=== PATIENT | female | born 1950 | race Caucasian/White ===

== ENCOUNTER 2018-01-27 15:34 | Emergency (ER) | payer MEDICARE, BC ==
[~2018-01-27] VITALS: Ht 160 cm; Wt 81.6 kg
[~2018-01-27 15:34] MED LIST: ALPR1TAB7 PO; DIPH1TAB PO; METO100T7 PO; NAPR-1164 PO; PRAM0.5T3 PO; [UNRECOGNIZED DRUG - REMARK]
[2018-01-27] MEDS ORDERED: SOLI10TA2 PO (16:04)
[2018-01-27] MEDS ORDERED: BECL8.7A6 IH (16:04)
--- NOTE | 2018-01-27 17:56 | NUR ---
" Can I have some blood tests?" per patient's verbalization, notified.
[2018-01-27 18:27] LABS: BASOPHILS # (AUTO) 0.1 K/uL (0.0-8.0); BASOPHILS % (AUTO) 0.6 % (0.0-2.0); EOSINOPHILS # (AUTO) 0.1 K/uL (0.0-0.7); EOSINOPHILS % (AUTO) 0.9 % (0.0-7.0); HEMATOCRIT 43.6 % (31.2-41.9); HEMOGLOBIN 14.3 g/dL (10.9-14.3); LYMPHOCYTES # (AUTO) 1.8 K/uL (20.0-40.0); LYMPHOCYTES % (AUTO) 18.8 % (20.5-51.5); MEAN CORPUSCULAR HEMOGLOBIN 28.9 uug (24.7-32.8); MEAN CORPUSCULAR HGB CONC 33 g/dL (32.3-35.6); MEAN CORPUSCULAR VOLUME 88.3 fL (75.5-95.3); MONOCYTES # (AUTO) 0.6 K/uL (2.0-10.0); MONOCYTES % (AUTO) 6.7 % (0.0-11.0); NEUTROPHILS # (AUTO) 6.9 K/uL (1.8-8.9); PLATELET COUNT (AUTO) 282 K/uL (179-408); RED BLOOD CELL COUNT(AUTO) 4.94 MIL/uL (3.63-4.92); WHITE BLOOD COUNT (AUTO) 9.4 K/uL (3.8-11.8)
--- NOTE | 2018-01-27 18:41 | NUR ---
Patient is resting comfortably on gurney while using her personal electronic device, NAD
[2018-01-27 18:47] LABS: BILIRUBIN,DIRECT 0.1 mg/dL (0.0-0.2); BILIRUBIN,TOTAL 0.5 mg/dL (0.2-1.0); CREATININE 1.3 mg/dL (0.6-1.3); POTASSIUM 4.5 mmol/L (3.5-5.1); TOTAL PROTEIN, SERUM 7.7 g/dL (6.4-8.2)
--- NOTE | 2018-01-27 18:52 | NUR ---
Blanquita vela in ED - 01/27/18 at [address] Whitman is at bedside evaluating the patient@this time.
--- NOTE | 2018-01-27 18:56 | NUR ---
BLANCAAR to RALPH Valentino, pending disposition
--- NOTE | 2018-01-27 19:06 | NUR ---
Patient was seen ambulating to the bathroom with slow steady gait.
[2018-01-27 19:37] VITALS: BP 133/66
== END 2018-01-27 19:38 | disposition home or self-care (01) ==
LOC: ER 15:37
DX: R51 Headache (principal); M54.2 Cervicalgia; J45.909 Unspecified asthma, uncomplicated; I10 Essential (primary) hypertension; E78.5 Hyperlipidemia, unspecified; G89.29 Other chronic pain; Z88.1 Allergy status to other antibiotic agents; Z88.8 Allergy status to other drugs, medicaments and biological substances; Z91.048 Other nonmedicinal substance allergy status; V43.92XA Unspecified car occupant injured in collision with other type car in traffic accident, initial encounter; Y93.89 Activity, other specified; Y92.89 Other specified places as the place of occurrence of the external cause; Y99.8 Other external cause status
CPT/HCPCS: 36415; 70030-TC; 70450; 71045; 72125; 85025; 85730; 93005; A4663

== ENCOUNTER 2018-11-19 18:34 | Inpatient (IN) | payer MEDICARE, BC ==
[~2018-11-19] VITALS: Ht 160 cm; Wt 133.9 kg
[~2018-11-19 18:34] MED LIST changes: +BECL8.7A6 IH; -NAPR-1164 PO; -PRAM0.5T3 PO; +SOLI10TA2 PO; -[UNRECOGNIZED DRUG - REMARK]
[2018-11-19] MEDS ORDERED: LORAZEPAM 2 MG/1 ML VIAL ONE (18:48)
[2018-11-19 19:14] LABS: BASOPHILS # (AUTO) 0.1 K/uL (0.0-8.0); BASOPHILS % (AUTO) 0.4 % (0.0-2.0); HEMATOCRIT 43.4 % (31.2-41.9); HEMOGLOBIN 13.5 g/dL (10.9-14.3); LYMPHOCYTES # (AUTO) 1.3 K/uL (20.0-40.0); LYMPHOCYTES % (AUTO) 8.3 % (20.5-51.5); MEAN CORPUSCULAR HEMOGLOBIN 27.5 uug (24.7-32.8); MEAN CORPUSCULAR HGB CONC 31 g/dL (32.3-35.6); MEAN CORPUSCULAR VOLUME 88.2 fL (75.5-95.3); MONOCYTES # (AUTO) 0.6 K/uL (2.0-10.0); MONOCYTES % (AUTO) 4.1 % (0.0-11.0); NEUTROPHILS # (AUTO) 13.5 K/uL (1.8-8.9); NEUTROPHILS % (AUTO) 87.2 % (38.5-71.5); PLATELET COUNT (AUTO) 328 K/uL (179-408); RED BLOOD CELL COUNT(AUTO) 4.92 MIL/uL (3.63-4.92); WHITE BLOOD COUNT (AUTO) 15.5 K/uL (3.8-11.8)
[2018-11-19] MEDS ORDERED: LORAZEPAM 2 MG/1 ML VIAL IV ONE (19:15)
[2018-11-19 19:26] LABS: CARBON DIOXIDE 18 mmol/L (21-32); CHLORIDE 101 mmol/L (98-107); CREATININE 1.7 mg/dL (0.6-1.3); GLUCOSE 171 mg/dL (74-106); UREA NITROGEN, BLOOD 24 mg/dL (7-18)
[2018-11-19 19:31] LABS: ALKALINE PHOSPHATASE 106 U/L (50-136); ASPARTATE AMINOTRANSFERASE 47 U/L (15-37); BILIRUBIN,DIRECT 0.2 mg/dL (0.0-0.2); BILIRUBIN,TOTAL 0.7 mg/dL (0.2-1.0); TOTAL PROTEIN, SERUM 8.1 g/dL (6.4-8.2)
[2018-11-19 19:36] LABS: ACETAMINOPHEN < 2.0 ug/mL (10-30)
[2018-11-19 19:39] LABS: THYROID STIMULATING HORMONE 2.899 mIU/mL (0.358-3.740)
[2018-11-19 19:41] LABS: ETHANOL < 3 MG/DL (0-0)
[2018-11-19 19:49] LABS: *BILIRUBIN,URIN 2+ (NEGATIVE); *BLOOD, URINE 2+ (NEGATIVE); *CLARITY,URINE SLIGHTLY CLOUDY (CLEAR); *COLOR,URINE YELLOW (YELLOW); *KETONES,URINE TRACE (NEGATIVE); *UROBILINOGEN,URINE 0.2 E.U./dl (NORMAL); LEUKOCYTE ESTERASE ,URINE NEGATIVE (NEGATIVE); NITRITE, URINE NEGATIVE (NEGATIVE); PH,URINE 5.5 (5.0-8.0); UGLUCOSE NEGATIVE (NEGATIVE)
[2018-11-19 20:01] LABS: BACTERIA,URINE FEW /HPF (NONE SEEN); SQUAMOUS EPITHELIAL CELL,UR FEW /HPF (NONE SEEN); URINE AMORPHOUS URATE FEW /HPF; WBC,URINE 0-3 /HPF (0-3)
[2018-11-19 20:12] LABS: *AMPHETAMINE, URINE NEGATIVE (NEGATIVE); *BARBITURATE, URINE NEGATIVE (NEGATIVE); *CANNABINOID, URINE NEGATIVE (NEGATIVE); *COCCAINE, URINE NEGATIVE (NEGATIVE); *OPIATE, URINE NEGATIVE (NEGATIVE); *PHENCYCLIDINE SCREEN,URINE NEGATIVE (NEGATIVE)
[2018-11-19] MEDS ORDERED: IV NORMAL SALINE 1000 ML BAG IV ONE ×2 (20:15→20:30)
[2018-11-19] MEDS ORDERED: LEVOFLOXACIN 500 MG/D5W 100ML PIGGYBACK IV ONE (20:15)
[2018-11-19] MEDS ORDERED: LEVOFLOXACIN 500 MG/D5W 100 ML ONE (20:18)
[2018-11-19] MEDS ORDERED: LEVETIRACETAM IV 1,000 MG in IV DEXTROSE 5% 100 ML IV ONE (20:45)
[2018-11-19 21:09] LABS: ALANINE AMINOTRANSFERASE 63 U/L (14-59)
[2018-11-19] MEDS ORDERED: LEVETIRACETAM 500 MG/5 ML VIAL IV ONE (21:10)
[2018-11-19 23:00] VITALS: BP 157/83
[2018-11-19] MEDS ORDERED: ZOLPIDEM 5 MG TABLET PO PRN (23:00)
[2018-11-19] MEDS ORDERED: ONDANSETRON 4 MG/2 ML VIAL IV PRN (23:00)
[2018-11-19] MEDS ORDERED: ACETAMINOPHEN 325 MG TABLET PO PRN (23:00)
[2018-11-19] MEDS ORDERED: ALBUTEROL SULFATE 2.5 MG/3 ML NEBU NEB PRN (23:15)
[2018-11-20] MEDS: IV 1/2NS 1000 ML 1,000 ML IV PRN ×2 (00:54→16:19)
[2018-11-20] MEDS: LORAZEPAM 2 MG/1 ML VIAL IV PRN ×2 (01:47→17:39)
[2018-11-20] MEDS: PANTOPRAZOLE SODIUM 40 MG TABLET.DR PO SCH (06:04)
[2018-11-20 06:16] VITALS: BP 123/63
[2018-11-20 06:24] LABS: BASOPHILS % (AUTO) 0.2 % (0.0-2.0); EOSINOPHILS % (AUTO) 0.2 % (0.0-7.0); HEMATOCRIT 36.1 % (31.2-41.9); HEMOGLOBIN 12.1 g/dL (10.9-14.3); LYMPHOCYTES # (AUTO) 1.7 K/uL (20.0-40.0); LYMPHOCYTES % (AUTO) 15.1 % (20.5-51.5); MEAN CORPUSCULAR HEMOGLOBIN 29.1 uug (24.7-32.8); MEAN CORPUSCULAR HGB CONC 34 g/dL (32.3-35.6); MEAN CORPUSCULAR VOLUME 86.9 fL (75.5-95.3); MONOCYTES # (AUTO) 0.8 K/uL (2.0-10.0); MONOCYTES % (AUTO) 6.8 % (0.0-11.0); NEUTROPHILS # (AUTO) 8.9 K/uL (1.8-8.9); NEUTROPHILS % (AUTO) 77.7 % (38.5-71.5); PLATELET COUNT (AUTO) 276 K/uL (179-408); RED BLOOD CELL COUNT(AUTO) 4.15 MIL/uL (3.63-4.92); WHITE BLOOD COUNT (AUTO) 11.5 K/uL (3.8-11.8)
[2018-11-20 06:38] LABS: BILIRUBIN,TOTAL 0.9 mg/dL (0.2-1.0); MAGNESIUM 2.2 mg/dL (1.8-2.4); PHOSPHOROUS 2.1 mg/dL (2.5-4.9); POTASSIUM 3.5 mmol/L (3.5-5.1); TOTAL PROTEIN, SERUM 6.6 g/dL (6.4-8.2)
[2018-11-20] MEDS: OXYBUTYNIN CHLORIDE 5 MG TABLET PO SCH ×3 (08:51→16:20)
[2018-11-20] MEDS: HYDROCODONE/APAP 5-325MG TABLET PO PRN (08:52)
[2018-11-20] MEDS: METOPROLOL SUCCINATE XL 50 MG TAB.SR.24H PO SCH (08:57)
[2018-11-20] MEDS: ALPRAZOLAM 0.25 MG TABLET PO PRN (10:10)
[2018-11-20 11:42] VITALS: BP 118/57
[2018-11-20 16:00] VITALS: BP 124/57
[2018-11-20] MEDS ORDERED: NEUTRA PHOS PACKET PO ONE (16:00)
[2018-11-20 19:44] VITALS: BP 110/56
[2018-11-20] MEDS: LEVETIRACETAM IV 500 MG in IV DEXTROSE 5% 100 ML IV SCH (21:02)
[2018-11-21] VITALS: BP 128/53
[2018-11-21 04:00] VITALS: BP 122/65
[2018-11-21] MEDS: PANTOPRAZOLE SODIUM 40 MG TABLET.DR PO SCH (06:08)
[2018-11-21] MEDS: IV 1/2NS 1000 ML 1,000 ML IV PRN ×2 (06:35→22:28)
[2018-11-21 06:42] LABS: BASOPHILS # (AUTO) 0.1 K/uL (0.0-8.0); BASOPHILS % (AUTO) 0.6 % (0.0-2.0); EOSINOPHILS # (AUTO) 0.1 K/uL (0.0-0.7); EOSINOPHILS % (AUTO) 0.8 % (0.0-7.0); HEMATOCRIT 37.3 % (31.2-41.9); HEMOGLOBIN 12.5 g/dL (10.9-14.3); LYMPHOCYTES # (AUTO) 1.7 K/uL (20.0-40.0); LYMPHOCYTES % (AUTO) 18.3 % (20.5-51.5); MEAN CORPUSCULAR HEMOGLOBIN 29.4 uug (24.7-32.8); MEAN CORPUSCULAR HGB CONC 33 g/dL (32.3-35.6); MEAN CORPUSCULAR VOLUME 88.1 fL (75.5-95.3); MONOCYTES # (AUTO) 0.7 K/uL (2.0-10.0); MONOCYTES % (AUTO) 8.1 % (0.0-11.0); NEUTROPHILS # (AUTO) 6.6 K/uL (1.8-8.9); NEUTROPHILS % (AUTO) 72.2 % (38.5-71.5); PLATELET COUNT (AUTO) 232 K/uL (179-408); RED BLOOD CELL COUNT(AUTO) 4.24 MIL/uL (3.63-4.92); WHITE BLOOD COUNT (AUTO) 9.2 K/uL (3.8-11.8)
[2018-11-21 06:56] LABS: MAGNESIUM 2.1 mg/dL (1.8-2.4); PHOSPHOROUS 2.7 mg/dL (2.5-4.9); POTASSIUM 3.9 mmol/L (3.5-5.1)
[2018-11-21] MEDS: LEVETIRACETAM IV 500 MG in IV DEXTROSE 5% 100 ML IV SCH ×2 (09:28→20:31)
[2018-11-21] MEDS: OXYBUTYNIN CHLORIDE 5 MG TABLET PO SCH ×3 (09:34→17:49)
[2018-11-21] MEDS: METOPROLOL SUCCINATE XL 50 MG TAB.SR.24H PO SCH (09:34)
[2018-11-21 11:11] VITALS: BP 128/47
[2018-11-21 15:02] VITALS: BP 144/48
[2018-11-21] MEDS: ALPRAZOLAM 0.25 MG TABLET PO PRN (15:04)
[2018-11-21] MEDS: HYDROCODONE/APAP 5-325MG TABLET PO PRN (17:51)
[2018-11-21] MEDS: NEOMY/BACITRAC/POLYMI OINT 28.35 GM TUBE TP SCH (18:13)
[2018-11-21] MEDS: LORAZEPAM 2 MG/1 ML VIAL IV PRN ×2 (19:29→22:05)
[2018-11-21 20:00] VITALS: BP 126/47
[2018-11-22] MEDS: ALPRAZOLAM 0.25 MG TABLET PO PRN ×2 (02:07→14:15)
[2018-11-22] MEDS: PANTOPRAZOLE SODIUM 40 MG TABLET.DR PO SCH (06:03)
[2018-11-22 06:43] LABS: BASOPHILS # (AUTO) 0.1 K/uL (0.0-8.0); BASOPHILS % (AUTO) 0.7 % (0.0-2.0); EOSINOPHILS # (AUTO) 0.1 K/uL (0.0-0.7); EOSINOPHILS % (AUTO) 1.4 % (0.0-7.0); HEMATOCRIT 38.3 % (31.2-41.9); HEMOGLOBIN 12.3 g/dL (10.9-14.3); LYMPHOCYTES # (AUTO) 1.7 K/uL (20.0-40.0); LYMPHOCYTES % (AUTO) 19.3 % (20.5-51.5); MEAN CORPUSCULAR HEMOGLOBIN 27.9 uug (24.7-32.8); MEAN CORPUSCULAR HGB CONC 32 g/dL (32.3-35.6); MEAN CORPUSCULAR VOLUME 86.9 fL (75.5-95.3); MONOCYTES # (AUTO) 0.7 K/uL (2.0-10.0); MONOCYTES % (AUTO) 7.5 % (0.0-11.0); NEUTROPHILS # (AUTO) 6.2 K/uL (1.8-8.9); NEUTROPHILS % (AUTO) 71.1 % (38.5-71.5); PLATELET COUNT (AUTO) 234 K/uL (179-408); RED BLOOD CELL COUNT(AUTO) 4.41 MIL/uL (3.63-4.92); WHITE BLOOD COUNT (AUTO) 8.8 K/uL (3.8-11.8)
[2018-11-22 06:48] LABS: CREATININE 1.1 mg/dL (0.6-1.3); PHOSPHOROUS 2.2 mg/dL (2.5-4.9); POTASSIUM 3.4 mmol/L (3.5-5.1)
[2018-11-22] MEDS: METOPROLOL SUCCINATE XL 50 MG TAB.SR.24H PO SCH (09:11)
[2018-11-22] MEDS: OXYBUTYNIN CHLORIDE 5 MG TABLET PO SCH ×2 (09:11→12:40)
[2018-11-22] MEDS: LEVETIRACETAM IV 500 MG in IV DEXTROSE 5% 100 ML IV SCH (09:11)
[2018-11-22] MEDS: NEOMY/BACITRAC/POLYMI OINT 28.35 GM TUBE TP SCH (09:12)
[2018-11-22] MEDS ORDERED: LEVE500T9 PO (10:00)
[2018-11-22] MEDS ORDERED: POTASSIUM CHLORIDE 20 MEQ POWDER PACKET PO ONE (10:15)
[2018-11-22] MEDS ORDERED: DIPHENOXYLATE HCL/ATROP SULF TABLET PO PRN (11:15)
[2018-11-22] MEDS ORDERED: NEUTRA PHOS PACKET PO ONE (15:45)
[2018-11-22 15:51] VITALS: BP 146/56
== END 2018-11-22 17:20 | disposition home health service (06) | DRG 100 ==
LOC: ER 18:37 → TELE3 22:36 → MEDSURG3 11-21 19:03
PROVIDERS: ADMIT Internal Medicine; ATTEND Internal Medicine
DX: R56.9 Unspecified convulsions (principal); N17.0 Acute kidney failure with tubular necrosis; G90.3 Multi-system degeneration of the autonomic nervous system; J98.11 Atelectasis; Z68.43 Body mass index [BMI] 50.0-59.9, adult; E44.0 Moderate protein-calorie malnutrition; E87.2 Acidosis; M51.06 Intervertebral disc disorders with myelopathy, lumbar region; D68.59 Other primary thrombophilia; M79.7 Fibromyalgia; K58.9 Irritable bowel syndrome, unspecified; E66.01 Morbid (severe) obesity due to excess calories; M50.30 Other cervical disc degeneration, unspecified cervical region; E78.5 Hyperlipidemia, unspecified; G43.909 Migraine, unspecified, not intractable, without status migrainosus; Z87.01 Personal history of pneumonia (recurrent); S41.101A Unspecified open wound of right upper arm, initial encounter; X58.XXXA Exposure to other specified factors, initial encounter; Y92.89 Other specified places as the place of occurrence of the external cause; M51.16 Intervertebral disc disorders with radiculopathy, lumbar region; E11.65 Type 2 diabetes mellitus with hyperglycemia; F41.9 Anxiety disorder, unspecified; E83.39 Other disorders of phosphorus metabolism; E73.9 Lactose intolerance, unspecified; K80.20 Calculus of gallbladder without cholecystitis without obstruction; J45.909 Unspecified asthma, uncomplicated; M48.02 Spinal stenosis, cervical region; N32.81 Overactive bladder; I10 Essential (primary) hypertension; G89.4 Chronic pain syndrome
CPT/HCPCS: 36415; 70030-TC; 70450; 71045; 72125; 80307; 83605; 83735; 84100; 84443; 85025; 85730; 87040; 87086; 93005; 93307; A4663; G0378; G0480; G0480-TC; J1953; J1956; J2060; J3490; J7030; J7060

== ENCOUNTER 2018-11-30 19:58 | Inpatient (IN) | payer MEDICARE, BC ==
[~2018-11-30] VITALS: Ht 167.6 cm; Wt 139.3 kg
[~2018-11-30 19:58] MED LIST changes: +LEVE500T9 PO
--- NOTE | 2018-11-30 21:30 | NUR ---
PT IS RECEIVED FROM [facility]. HERE FOR MEDICAL CLEARANCE AND ADMISSION TO MHU PT IS TRANSFERRED TO [facility]. +UNKEMPT HAIR AND +BODY ODOR. WEARING HER SUNGLASSES PT IS AOX2 PERSON AND PLACE. DISMISSES QUESTIONS AND STATES: "THAT IS NOT IMPORTANT RIGHT NOW" NOTICED DISORIENTATION, DENIES SI/HI CONCERNS AT THIS TIME
--- NOTE | 2018-11-30 22:00 | NUR ---
PT STATES: "I NEED TO TALK WITH CONNER HIGGINS AND ADARSH BEFORE YOU SAY ANYTHING. THEY ARE NEARBY AT THE [facility]. I NEED TO SPEAK WITH THEM" PT WAS REORIENTED AND REASSURED. PT IS COMPLIANT. PT DID NOT COME WITH RELATIVES NOR PEERS Addendum: 12/01/18 at 0104 by NEVA CALL FOR BED DONE PT WILL BE ADMITTED TO THE [facility] [address] REA CONFIRMED 5150 GD PT IS AOX2 PERSON AND PLACE WITH EPISODES OF CONFUSION AND DISORIENTATION PT IS ACALM AND COMPLIANT SIDERAILSX2 UP, BED AT LOWEST POSITION
--- NOTE | 2018-11-30 23:30 | NUR ---
HAND OFF AND SBAR GIVEN TO JAVI ROSAS ALL PT BELONGINGS SIGNED
[2018-11-30] MEDS ORDERED: MAG HYDROX/AL HYDROX/SIMETH 30 ML LIQUID UDC PO PRN (23:45)
[2018-11-30] MEDS ORDERED: ACETAMINOPHEN 325 MG TABLET PO PRN (23:45)
[2018-11-30] MEDS ORDERED: MAGNESIUM HYDROXIDE 30 ML LIQUID UDC PO PRN (23:45)
[2018-11-30] MEDS ORDERED: TEMAZEPAM 7.5 MG CAPSULE PO PRN (23:45)
--- NOTE | 2018-11-30 23:52 | NUR ---
TRANSFERRED VIA GURNEY TO MHU ACCOMPANIED BY RALPH QUINTERO X2, BED AT LOWEST POSITION
[2018-12-01] MEDS ORDERED: BLOOD SUGAR DIAGNOSTIC 1 EACH STRIP VI SCH (00:30)
--- NOTE | 2018-12-01 01:41 | NUR ---
PATIENT RECEIVED FROM ER VIA [employer] 0016. PATIENT STATED "CALL GISELA LEUNG." PATIENT ALERT/ORIENTED X 1-2 PATIENT CONFUSED, UNKEMPT, ANXIOUS, SUSPICIOUS, GUARDED, RESTLESS, AND UNCOOPERATIVE. PATIENT REFUSED TO ANSWER ANY QUESTIONS ON HISTORY. PATIENT HAS REDNESS TO ABDOMINAL FOLDS, PATIENT REFUSED PICTURES. BILATERAL BRUISING TO UPPER AND LOWER ARMS, REFUSING PICTURES. NON- PITTING EDEMA TO BILATERAL FEET. PATIENT GIVEN ADVISEMENT AND ADMISSION PACKET AT BEDSIDE. NO AGGRESSIVE OR COMBATIVE BEHAVIOR NOTED, WILL CONTINUE TO MONITOR AND REDIRECT NEEDED. PATIENT ORIENTED TO ROOM REQUIRES FREQUENT REDIRECTION. BED IN LOWEST POSITION, BED LOCKED, AND BED ALARM ON WHILE IN BED. PATIENT DENIES SI/HI WILL CONTINUE TO MONITOR. PATIENT DENIES PAIN.PATIENT IS UNABLE TO AMBULATE PHYSICAL THERAPY ORDERED. ACCUCHECK RENDERED UPON ADMISSION 117MG/DL
--- NOTE | 2018-12-01 06:46 | NUR ---
UPON SHOWER THIS MORNING NOTED TO RIGHT SHOULDER BLADE AN OPEN SORE PICTURE RENDERED AND WOUND CONSULT ORDERED. WOUND CONSULT ALSO TO EVALUATE REDNESS TO ABDOMINAL FOLDS.
[2018-12-01 07:30] VITALS: BP 206/101
[2018-12-01] MEDS: LORAZEPAM 1 MG TABLET PO PRN ×2 (08:09→20:08)
[2018-12-01] MEDS ORDERED: CLONIDINE HCL 0.2 MG TABLET PO ONE (08:30)
[2018-12-01 10:27] VITALS: BP 153/48
[2018-12-01] MEDS: risperiDONE-M 0.5 MG TAB.RAPDIS PO SCH ×2 (14:20→21:00)
[2018-12-01 15:00] VITALS: BP 117/41
[2018-12-01] MEDS ORDERED: hydrALAZINE HCL 25 MG TABLET PO PRN (18:15)
[2018-12-01] MEDS: LEVETIRACETAM 500 MG TABLET PO SCH (18:45)
[2018-12-01] MEDS: BENZTROPINE MESYLATE 0.5 MG TABLET PO SCH (20:08)
--- NOTE | 2018-12-01 20:10 | NUR ---
PATIENT VERY ANXIOUS. NEEDS TO BE REDIRECTED FREQUENTLY. PATIENT GIVEN ATIVAN 1MG PO PRN FOR ANXIETY. ALL NEEDS ATTENDED. WILL CONTINUE TO MONITOR.
[2018-12-01 20:12] VITALS: BP 139/60
--- NOTE | 2018-12-01 21:30 | NUR ---
PATIENT ASLEEP IN BED. NO RESP. DISTRESS NOTED. BED ALARM ON. ZYPREXA ORDERED FOR 2100 NOT GIVEN. ORDER IS FOR Q12 AND PATIENT RECEIVED FIRST DOSE EARLIER AROUND 1400. PATIENT WAS EDUCATED EARLIER ON ZYPREXA, SHE BECAME VERY UPSET STATING SHE CAN NOT TAKE ZYPREXA AND IF SHE KNEW EARLIER THAT IT WAS GIVEN SHE WOULD HAVE REFUSED. PATIENT WANTS TO SPEAK WITH PSYCHIATRIST IN AM. AVIONICS MECHANIC AT BEDSIDE. ALL NEEDS ATTENDED.
[2018-12-02] MEDS: LEVETIRACETAM 500 MG TABLET PO SCH ×2 (06:03→18:20)
[2018-12-02 07:30] VITALS: BP 159/65
[2018-12-02 10:02] LABS: THYROID STIMULATING HORMONE 2.54 mIU/mL (0.358-3.740)
[2018-12-02] MEDS: FLUTICASONE/VILANTEROL 1 EACH BLST.W.DEV INH SCH (10:31)
[2018-12-02] MEDS: METOPROLOL SUCCINATE XL 50 MG TAB.SR.24H PO SCH (10:32)
[2018-12-02] MEDS: risperiDONE-M 0.5 MG TAB.RAPDIS PO SCH ×2 (10:32→21:19)
[2018-12-02] MEDS: BENZTROPINE MESYLATE 0.5 MG TABLET PO SCH ×2 (10:32→21:20)
[2018-12-02 11:08] LABS: MAGNESIUM 1.8 mg/dL (1.8-2.4); PHOSPHOROUS 2.9 mg/dL (2.5-4.9)
[2018-12-02] MEDS: LORAZEPAM 1 MG TABLET PO PRN (11:13)
[2018-12-02 15:22] VITALS: BP 149/65
--- NOTE | 2018-12-02 19:30 | NUR ---
AWAKE, SITTING AT THE EDGE OF BED. VERY CONVERSANT,AND CALM. DENIES ANY APIN/DISCOMFORTS AT THIS TIMED. DENIES ANY HALLUCINATION AND PARANOIA. CONTINUE CARE PLANNED.
[2018-12-02 20:10] VITALS: BP 114/61
--- NOTE | 2018-12-02 21:31 | NUR ---
TOOK WOUND PICTURE ON RIGHT UPPER ARM DORSAL SIDE. SHOWER DONE PER REQUEST. TOLERATED WELL.
--- NOTE | 2018-12-02 22:00 | NUR ---
TOOK PICTURES ON PT RIGHT ABDOMINAL FOLD AND RIGHT GROIN AREA RASHES. CLOTRIMAZOLE CREAM ORDERED BUT UNAVAILABLE THIS TIME. CHARGE NURSE AWARE.
[2018-12-03] MEDS: LEVETIRACETAM 500 MG TABLET PO SCH ×2 (05:52→17:46)
--- NOTE | 2018-12-03 06:04 | NUR ---
SHIFT END REPORT: VS STABLE. SLEPT GOOD. NO COMPLAINT PRESENTED. REMAIN AFEBRILE. ALL NEEDS ATTENDED AND MET. NO SIGNIFICANT EVENT REPORTED. CONTINUE CURRENT PLAN OF CARE.
[2018-12-03 07:20] LABS: *BILIRUBIN,URIN NEGATIVE (NEGATIVE); *CLARITY,URINE SLIGHTLY CLOUDY (CLEAR); *COLOR,URINE YELLOW (YELLOW); *KETONES,URINE NEGATIVE (NEGATIVE); *UROBILINOGEN,URINE 0.2 E.U./dl (NORMAL); LEUKOCYTE ESTERASE ,URINE NEGATIVE (NEGATIVE); NITRITE, URINE NEGATIVE (NEGATIVE); PH,URINE 5.5 (5.0-8.0); UGLUCOSE NEGATIVE (NEGATIVE)
[2018-12-03 07:30] VITALS: BP 92/56
[2018-12-03 08:22] LABS: *BLOOD, URINE TRACE (NEGATIVE)
[2018-12-03 08:29] LABS: BACTERIA,URINE FEW /HPF (NONE SEEN); SQUAMOUS EPITHELIAL CELL,UR MODERATE /HPF (NONE SEEN)
[2018-12-03 08:30] LABS: MUCUS,URINE FEW /LPF (0-FEW)
[2018-12-03] MEDS: BENZTROPINE MESYLATE 0.5 MG TABLET PO SCH ×2 (08:44→20:13)
[2018-12-03] MEDS: risperiDONE-M 0.5 MG TAB.RAPDIS PO SCH ×2 (08:44→20:12)
[2018-12-03] MEDS: CLOTRIMAZOLE 1% CREAM 30 GM TUBE TOP SCH ×2 (08:56→20:13)
[2018-12-03] MEDS: METOPROLOL SUCCINATE XL 50 MG TAB.SR.24H PO SCH (08:57)
[2018-12-03] MEDS: FLUTICASONE/VILANTEROL 1 EACH BLST.W.DEV INH SCH (08:58)
[2018-12-03 15:02] VITALS: BP 152/64
--- NOTE | 2018-12-03 16:34 | NUR ---
Initial Discharge plan Patient currently lives by herself in her apartment [Home: [address], [place] [address]; [phone]]. Patient would like to return ther after discharge. SW will continue to work with patient and MD to ensure a safe and proper discharge wright.
[2018-12-03 20:00] VITALS: BP 126/43
[2018-12-03] MEDS ORDERED: DEXTROSE 50% 50 ML DISP.SYRIN IV PRN (20:30)
[2018-12-03] MEDS: BLOOD SUGAR DIAGNOSTIC 1 EACH STRIP VI SCH (21:00)
[2018-12-04] MEDS: LORAZEPAM 1 MG TABLET PO PRN (03:23)
[2018-12-04] MEDS: LEVETIRACETAM 500 MG TABLET PO SCH (05:56)
[2018-12-04] MEDS: BLOOD SUGAR DIAGNOSTIC 1 EACH STRIP VI SCH ×4 (06:33→20:29)
--- NOTE | 2018-12-04 06:35 | NUR ---
Received Pt in her room on the phone. Pt ended her call and proceeded to explain to this short story writer how the MD "is releasing me to med surg and getting me out of the psych hart." Pt found to be hoarding multiple sandwiches and bottles of water in her dresser drawer. Pt educated on the food and snack policy, also regarding proper and safe food storage. Pt became upset and attempted to staff split, stating to the other RN who entered the room after subsequent to the Pt interview, Pt stated, "I don't like her, I want you as my nurse." Pt is entitled, hyperverbal, and needy. Pt is tangential and is difficult to stay on topic. Poor insight into psychiatric condition, Pt denies any reason for being in MHU, stating, It was all a big mistake because of my seizure disorder." Compliant with psych medication only after education, prompting and encouragement provided. Pt constantly complains about staff to other staff, requests multiple snacks, and though she is continent, requested a diaper. DIPPER AND DRIER placed diaper on the Pt per her request. Pt complained after her diaper was put on, that the DIPPER AND DRIER should have used cream even though cream was placed on the Pt by this short story writer during HS med pass. When Pt was educated regarding the frequency and the timing of the cream application, Pt became argumentative and asked to speak to a well point pumping supervisor. human resources benefits coordinator notified of Pt request. Pt then requested pain medication for 6/10 (B) knee pain, and stated that the staff "is not taking care of me." This short story writer came back to her room with pain medication and Ativan for anxiety. Pt was sleeping with audible snoring upon RN returning to her room. Medication wasted with human resources benefits coordinator. A1C noted to be 6.5, MD ordered insulin sliding scale with accu check. Pt initially refused HS and AM accu check, is irritable and uncooperative. Pt let human resources benefits coordinator take her accu check, AM BS 92. Denies SI/HI.
[2018-12-04 07:11] LABS: BASOPHILS # (AUTO) 0.1 K/uL (0.0-8.0); EOSINOPHILS # (AUTO) 0.1 K/uL (0.0-0.7); EOSINOPHILS % (AUTO) 1.7 % (0.0-7.0); HEMOGLOBIN 12.1 g/dL (10.9-14.3); LYMPHOCYTES # (AUTO) 1.9 K/uL (20.0-40.0); LYMPHOCYTES % (AUTO) 26.9 % (20.5-51.5); MEAN CORPUSCULAR HEMOGLOBIN 28.5 uug (24.7-32.8); MEAN CORPUSCULAR HGB CONC 33 g/dL (32.3-35.6); MEAN CORPUSCULAR VOLUME 87.2 fL (75.5-95.3); MONOCYTES # (AUTO) 0.6 K/uL (2.0-10.0); NEUTROPHILS # (AUTO) 4.3 K/uL (1.8-8.9); NEUTROPHILS % (AUTO) 61.4 % (38.5-71.5); PLATELET COUNT (AUTO) 178 K/uL (179-408); RED BLOOD CELL COUNT(AUTO) 4.24 MIL/uL (3.63-4.92)
[2018-12-04 07:24] LABS: BILIRUBIN,TOTAL 0.7 mg/dL (0.2-1.0); CREATININE 0.9 mg/dL (0.6-1.3); MAGNESIUM 1.6 mg/dL (1.8-2.4); PHOSPHOROUS 2.9 mg/dL (2.5-4.9); POTASSIUM 3.6 mmol/L (3.5-5.1)
[2018-12-04 07:30] VITALS: BP 117/60
--- NOTE | 2018-12-04 07:30 | NUR ---
RECIEVED PT LAYING IN BED, GENERALLY OBESED WITH GENERALIZED BODY WEAKNESS SECONDARY TO HER WEIGHT. AWAKE, ALERT AND ORIENTEDX3. VERY CONVERSANT BUT PLEASANT. ENCOURAGED TO GO TO THE DINING AREA FOR BREAKFAST BUT SHE IS REFUSING. HAS AN ODOROUS BODY SMELL BUT PT REFUSES TO TAKE A SHOWER. HER SKIN HAS SCATTERED RASHES AND WOUND PRESENT ON HER RIGHT UPPER BACK. AWAITING FOR WOUND CARE NURSE EVALUATION AND TX.
[2018-12-04] MEDS: GLIMEPIRIDE 2 MG TABLET PO SCH (08:38)
[2018-12-04] MEDS: risperiDONE-M 0.5 MG TAB.RAPDIS PO SCH ×3 (08:40→20:28)
[2018-12-04] MEDS: METOPROLOL SUCCINATE XL 50 MG TAB.SR.24H PO SCH (08:40)
[2018-12-04] MEDS: FLUTICASONE/VILANTEROL 1 EACH BLST.W.DEV INH SCH (08:41)
[2018-12-04] MEDS: BENZTROPINE MESYLATE 0.5 MG TABLET PO SCH ×2 (09:27→20:27)
[2018-12-04] MEDS: CLOTRIMAZOLE 1% CREAM 30 GM TUBE TOP SCH ×2 (09:27→20:28)
[2018-12-04] MEDS ORDERED: MAGNESIUM OXIDE 400 MG TABLET PO ONE (10:00)
--- NOTE | 2018-12-04 10:14 | NUR ---
FIREARMS REPORT: Side Laster Staple completed and submitted a [employer] firearms report for 5250 grave disability certification. A copy of report has been placed in patient chart.
--- NOTE | 2018-12-04 10:15 | NUR ---
Discharge planning SW attempted to reach Chelsea Graf [friend; [phone]] for collateral information regarding the patient and left two voicemails but unsuccessful.
--- NOTE | 2018-12-04 11:30 | NUR ---
SEEN AND EXAMINED BY DR EVANS WITH NEW OR. PT MEDICATED WITH MAGNESIUN CHLORIDE 1 TABLET ORALLY ORDERED.
--- NOTE | 2018-12-04 13:30 | NUR ---
SEEN AND EXAMIND BY THE WOUND CARE NURSE AT THE BEDSIDE WITH A NEW RECOMMENDATIONS.
--- NOTE | 2018-12-04 13:48 | NUR ---
APS Report This news writer submitted an APS report for suspicion of self neglect at patient's home. Report (Intake ID [id number]) was submitted on 12/04/2018 at 1:45 PM.
--- NOTE | 2018-12-04 14:05 | NUR ---
WOUND CARE CONSULT: PT PRESENTS WITH RASHES TO ABDOMINAL/GROIN FOLDS AND WOUND TO RT POSTERIOR SHOULDER AREA, PRESENT ON ADMISSION. PT IS ABLE TO AMBULATE PER NURSING STAFF AND IS CONTINENT. RECOMMENDATIONS MADE FOR SKIN CARE AND WOUND CARE. DISCUSSED WITH NURSING STAFF. DR CRISTINA MANZANO NOTIFIED OF SURGICAL CONSULT REQUEST FOR SHOULDER WOUND. WILL SEE PRN. QUNIN IN AGREEMENT WITH PLAN OF CARE. Addendum: 12/04/18 at 1407 by ALFA DELA CRUZ RN Amended: Links added. Addendum: 12/04/18 at 1415 by ALFA DELA CRUZ RN ABOVE WOUND CARE CONSULT WAS DONE BY MURPHY OLIVER RN (WOUND CARE)
[2018-12-04] MEDS ORDERED: Z GUARD REMEDY PASTE 57 GM TUBE TOP PRN (14:15)
--- NOTE | 2018-12-04 14:17 | NUR ---
WOUND CARE CONSULT: PT PRESENTS WITH RASHES TO ABDOMINAL/GROIN FOLDS AND WOUND TO RT POSTERIOR SHOULDER AREA, PRESENT ON ADMISSION. PT IS ABLE TO AMBULATE PER NURSING STAFF AND IS CONTINENT. RECOMMENDATIONS MADE FOR SKIN CARE AND WOUND CARE. DISCUSSED WITH NURSING STAFF. DR CRISTINA MANZANO NOTIFIED OF SURGICAL CONSULT REQUEST FOR SHOULDER WOUND. WILL SEE PRRaheem QUINN IN AGREEMENT WITH PLAN OF CARE.
[2018-12-04 15:31] VITALS: BP 151/67
[2018-12-04] MEDS: DIVALPROEX ER 500 MG TAB.SR.24H PO SCH (16:37)
--- NOTE | 2018-12-04 17:00 | NUR ---
WOUND ON THE RIGHT UPPER BACK ARM IS CLEANSED WITH NS, APPLIED HYDROGEL ABD COVERED IT WITH MEPELEX PER [facility] NURSE RECOMMENDATION TX. PT IS COOPERATIVE. BS IS 137 BUT PT REFUSED TO HAVE INSULIN SHOT COVERAGE. NOTIFIED DR EVANS. NO ORDERS MADE.
[2018-12-04 19:54] VITALS: BP 142/49
[2018-12-04] MEDS: Z GUARD REMEDY PASTE 57 GM TUBE TOP SCH (20:28)
[2018-12-04] MEDS: INSULIN REGULAR, HUMAN 300 UNIT/3 ML VIAL SQ PRN (20:29)
--- NOTE | 2018-12-04 21:21 | NUR ---
Patient refused to take any Insulin or Cogentin. Patient stated " All these medications are making me feel sick and I am not a diabetic, never have been".
--- NOTE | 2018-12-05 05:17 | NUR ---
Patient up early this am. Shower given, ointments applied. Dressing changed to Right arm. Patient with multiple requests. Very needy. Patient back to bed, all needs met at this time.No acute distress.
[2018-12-05] MEDS: BLOOD SUGAR DIAGNOSTIC 1 EACH STRIP VI SCH ×4 (06:08→20:14)
[2018-12-05 07:30] VITALS: BP 165/70
[2018-12-05] MEDS: INSULIN REGULAR, HUMAN 300 UNIT/3 ML VIAL SQ PRN ×2 (07:55→17:06)
[2018-12-05] MEDS: risperiDONE-M 0.5 MG TAB.RAPDIS PO SCH ×3 (08:26→20:14)
[2018-12-05] MEDS: BENZTROPINE MESYLATE 0.5 MG TABLET PO SCH ×2 (08:26→20:14)
[2018-12-05] MEDS: METOPROLOL SUCCINATE XL 50 MG TAB.SR.24H PO SCH (08:27)
[2018-12-05] MEDS: GLIMEPIRIDE 2 MG TABLET PO SCH (08:27)
[2018-12-05] MEDS: CLOTRIMAZOLE 1% CREAM 30 GM TUBE TOP SCH ×2 (08:27→20:15)
[2018-12-05] MEDS: FLUTICASONE/VILANTEROL 1 EACH BLST.W.DEV INH SCH (08:27)
[2018-12-05] MEDS: Z GUARD REMEDY PASTE 57 GM TUBE TOP SCH ×2 (08:29→20:15)
[2018-12-05 15:08] VITALS: BP 160/76
[2018-12-05] MEDS: DIVALPROEX ER 500 MG TAB.SR.24H PO SCH (17:03)
[2018-12-05 20:21] VITALS: BP 150/70
--- NOTE | 2018-12-05 21:41 | NUR ---
Doctor in earlier and did a debridement on patients RT arm. Consent signed and patient tolerated procedure well. Patient has been out to the nurses station with multiple requests and complaints about roommate. Offered to move patient to another room, but patient refused. Continuing to accommodate patient within reason. No acute distress at this time.
--- NOTE | 2018-12-06 05:27 | NUR ---
Patient slept 3.0 hours. Multiple requests for food during the night. No acute distress. Patient in bed at this time, awake.
[2018-12-06] MEDS: BLOOD SUGAR DIAGNOSTIC 1 EACH STRIP VI SCH ×4 (06:11→20:56)
[2018-12-06 08:11] VITALS: BP 117/66
[2018-12-06] MEDS: FLUTICASONE/VILANTEROL 1 EACH BLST.W.DEV INH SCH (09:00)
[2018-12-06] MEDS ORDERED: THERAHONEY GEL 1.5 OZ TUBE TOP SCH (09:00)
[2018-12-06] MEDS ORDERED: ASCORBIC ACID 250 MG TABLET PO SCH (09:00)
[2018-12-06] MEDS: BENZTROPINE MESYLATE 0.5 MG TABLET PO SCH ×2 (09:22→20:42)
[2018-12-06] MEDS: risperiDONE-M 0.5 MG TAB.RAPDIS PO SCH ×2 (09:22→12:32)
[2018-12-06] MEDS: METOPROLOL SUCCINATE XL 50 MG TAB.SR.24H PO SCH (09:22)
[2018-12-06] MEDS: GLIMEPIRIDE 2 MG TABLET PO SCH (09:23)
[2018-12-06] MEDS: CLOTRIMAZOLE 1% CREAM 30 GM TUBE TOP SCH ×2 (09:24→20:42)
[2018-12-06] MEDS: Z GUARD REMEDY PASTE 57 GM TUBE TOP SCH ×2 (09:24→20:56)
[2018-12-06] MEDS ORDERED: ASCORBIC ACID 500 MG TABLET PO SCH (09:37)
[2018-12-06] MEDS ORDERED: SOLI5TAB2 PO (12:06)
[2018-12-06] MEDS ORDERED: SOLIFENACIN SUCCINATE 5 MG TABEC PO SCH (12:30)
[2018-12-06 15:55] VITALS: BP 135/62
[2018-12-06] MEDS ORDERED: OXYBUTYNIN CHLORIDE 5 MG TABLET PO SCH (17:00)
[2018-12-06] MEDS ORDERED: MAGNESIUM HYDROXIDE 30 ML LIQUID UDC PO PRN (17:00)
[2018-12-06] MEDS ORDERED: TEMAZEPAM 7.5 MG CAPSULE PO PRN (17:00)
[2018-12-06] MEDS ORDERED: MAG HYDROX/AL HYDROX/SIMETH 30 ML LIQUID UDC PO PRN (17:00)
[2018-12-06] MEDS ORDERED: DEXTROSE 50% 50 ML DISP.SYRIN IV PRN (17:15)
[2018-12-06] MEDS ORDERED: hydrALAZINE HCL 25 MG TABLET PO PRN (17:15)
[2018-12-06] MEDS: DIVALPROEX ER 500 MG TAB.SR.24H PO SCH (17:58)
[2018-12-06] MEDS: OXYBUTYNIN CHLORIDE 5 MG TABLET PO SCH (18:02)
[2018-12-06] MEDS ORDERED: risperiDONE-M 0.5 MG TAB.RAPDIS PO SCH (21:00)
[2018-12-06] MEDS ORDERED: OLANZAPINE 2.5 MG TABLET PO SCH ×3 (21:00)
[2018-12-06 21:38] VITALS: BP 138/60
[2018-12-07] MEDS: LORAZEPAM 1 MG TABLET PO PRN (03:10)
--- NOTE | 2018-12-07 03:28 | NUR ---
GPS: Pt.is needy and argumentative at this time. Constantly asking for food. Easily irritable when staff was trying to throw her thrash on her bedside table. Requested for Ativan 1mg PO for anxiety. Fall precautions observed. Will continue to anticipate needs and concerns.
[2018-12-07] MEDS: BLOOD SUGAR DIAGNOSTIC 1 EACH STRIP VI SCH ×4 (06:48→20:13)
[2018-12-07 07:23] LABS: BASOPHILS # (AUTO) 0.1 K/uL (0.0-8.0); BASOPHILS % (AUTO) 1.1 % (0.0-2.0); EOSINOPHILS # (AUTO) 0.1 K/uL (0.0-0.7); HEMOGLOBIN 11.8 g/dL (10.9-14.3); LYMPHOCYTES # (AUTO) 1.7 K/uL (20.0-40.0); LYMPHOCYTES % (AUTO) 23.3 % (20.5-51.5); MEAN CORPUSCULAR HEMOGLOBIN 28.5 uug (24.7-32.8); MEAN CORPUSCULAR HGB CONC 33 g/dL (32.3-35.6); MEAN CORPUSCULAR VOLUME 87.4 fL (75.5-95.3); MONOCYTES # (AUTO) 0.6 K/uL (2.0-10.0); NEUTROPHILS # (AUTO) 4.6 K/uL (1.8-8.9); NEUTROPHILS % (AUTO) 64.6 % (38.5-71.5); PLATELET COUNT (AUTO) 201 K/uL (179-408); RED BLOOD CELL COUNT(AUTO) 4.12 MIL/uL (3.63-4.92); WHITE BLOOD COUNT (AUTO) 7.1 K/uL (3.8-11.8)
[2018-12-07 07:30] VITALS: BP 137/49
[2018-12-07 07:36] LABS: BILIRUBIN,TOTAL 0.5 mg/dL (0.2-1.0); CREATININE 0.9 mg/dL (0.6-1.3); POTASSIUM 4.1 mmol/L (3.5-5.1); TOTAL PROTEIN, SERUM 5.9 g/dL (6.4-8.2)
[2018-12-07] MEDS: ASCORBIC ACID 500 MG TABLET PO SCH (08:31)
[2018-12-07] MEDS: BENZTROPINE MESYLATE 0.5 MG TABLET PO SCH ×2 (08:31→20:04)
[2018-12-07] MEDS: risperiDONE-M 0.5 MG TAB.RAPDIS PO SCH ×3 (08:31→20:05)
[2018-12-07] MEDS: GLIMEPIRIDE 2 MG TABLET PO SCH (08:32)
[2018-12-07] MEDS: OXYBUTYNIN CHLORIDE 5 MG TABLET PO SCH ×2 (08:33→17:13)
[2018-12-07] MEDS: FLUTICASONE/VILANTEROL 1 EACH BLST.W.DEV INH SCH (08:57)
[2018-12-07] MEDS: CLOTRIMAZOLE 1% CREAM 30 GM TUBE TOP SCH ×2 (08:59→20:24)
[2018-12-07] MEDS: THERAHONEY GEL 1.5 OZ TUBE TOP SCH (08:59)
[2018-12-07] MEDS: METOPROLOL SUCCINATE XL 50 MG TAB.SR.24H PO SCH (09:00)
[2018-12-07] MEDS ORDERED: risperiDONE-M 0.5 MG TAB.RAPDIS PO SCH ×2 (09:00)
[2018-12-07] MEDS: Z GUARD REMEDY PASTE 57 GM TUBE TOP SCH ×2 (09:00→20:24)
[2018-12-07] MEDS: INSULIN REGULAR, HUMAN 300 UNIT/3 ML VIAL SQ PRN ×2 (12:25→20:18)
--- NOTE | 2018-12-07 13:33 | NUR ---
Discharge Planning SW faxed patient's referral packet to [facility] [Address: [address], [place] [address]; ] and spoke to Amanda for patient's review.
[2018-12-07 15:22] VITALS: BP 152/56
[2018-12-07] MEDS: DIVALPROEX ER 500 MG TAB.SR.24H PO SCH (17:12)
[2018-12-07 19:42] VITALS: BP_SYST 134; BP_SYST 139; BP_DIAS 36; BP_DIAS 53
[2018-12-08] MEDS: LORAZEPAM 1 MG TABLET PO PRN (02:41)
[2018-12-08] MEDS: BLOOD SUGAR DIAGNOSTIC 1 EACH STRIP VI SCH ×4 (06:39→20:54)
[2018-12-08 07:40] VITALS: BP 137/48
[2018-12-08] MEDS: FLUTICASONE/VILANTEROL 1 EACH BLST.W.DEV INH SCH (09:00)
[2018-12-08] MEDS: GLIMEPIRIDE 2 MG TABLET PO SCH (09:03)
[2018-12-08] MEDS: OXYBUTYNIN CHLORIDE 5 MG TABLET PO SCH ×2 (09:03→16:45)
[2018-12-08] MEDS: METOPROLOL SUCCINATE XL 50 MG TAB.SR.24H PO SCH (09:03)
[2018-12-08] MEDS: ASCORBIC ACID 500 MG TABLET PO SCH (09:03)
[2018-12-08] MEDS: Z GUARD REMEDY PASTE 57 GM TUBE TOP SCH ×2 (09:04→20:54)
[2018-12-08] MEDS: DIVALPROEX 250 MG TABLET.DR PO SCH (09:04)
[2018-12-08] MEDS: CLOTRIMAZOLE 1% CREAM 30 GM TUBE TOP SCH ×2 (09:04→21:20)
[2018-12-08] MEDS: BENZTROPINE MESYLATE 0.5 MG TABLET PO SCH ×2 (09:04→20:52)
[2018-12-08] MEDS: risperiDONE-M 0.5 MG TAB.RAPDIS PO SCH ×3 (09:04→20:52)
[2018-12-08] MEDS: THERAHONEY GEL 1.5 OZ TUBE TOP SCH (09:06)
[2018-12-08 15:00] VITALS: BP 122/53
[2018-12-08] MEDS: DIVALPROEX ER 500 MG TAB.SR.24H PO SCH (16:45)
[2018-12-08] MEDS ORDERED: PNEUMOCOCCAL 23-VAL P-SAC VAC 0.5 ML VIAL IM ONE (18:30)
[2018-12-08] MEDS ORDERED: INFLUENZA VACCINE 2019-2020 0.5 ML DISP.SYRIN IM ONE (18:30)
[2018-12-08 20:26] VITALS: BP 137/67
[2018-12-08] MEDS: ACETAMINOPHEN 325 MG TABLET PO PRN (20:57)
[2018-12-08] MEDS: INSULIN REGULAR, HUMAN 300 UNIT/3 ML VIAL SQ PRN (21:08)
--- NOTE | 2018-12-09 05:43 | NUR ---
GPS: Remain calm and cooperative with nursing care. no agitation noted, no c/o pain or dicomfort at this time. continue plan of care.
[2018-12-09] MEDS: BLOOD SUGAR DIAGNOSTIC 1 EACH STRIP VI SCH ×4 (06:28→20:32)
--- NOTE | 2018-12-09 06:31 | NUR ---
GPS: SLEPT 7 HRS THROUGH THE NIGHT.
[2018-12-09 07:43] VITALS: BP 130/53
[2018-12-09] MEDS: DIVALPROEX 250 MG TABLET.DR PO SCH (08:57)
[2018-12-09] MEDS: OXYBUTYNIN CHLORIDE 5 MG TABLET PO SCH ×2 (08:57→16:29)
[2018-12-09] MEDS: BENZTROPINE MESYLATE 0.5 MG TABLET PO SCH ×2 (08:57→20:53)
[2018-12-09] MEDS: ASCORBIC ACID 500 MG TABLET PO SCH (08:57)
[2018-12-09] MEDS: METOPROLOL SUCCINATE XL 50 MG TAB.SR.24H PO SCH (08:57)
[2018-12-09] MEDS: GLIMEPIRIDE 2 MG TABLET PO SCH (08:57)
[2018-12-09] MEDS: risperiDONE-M 0.5 MG TAB.RAPDIS PO SCH ×3 (08:57→20:53)
[2018-12-09] MEDS: THERAHONEY GEL 1.5 OZ TUBE TOP SCH (08:57)
[2018-12-09] MEDS: FLUTICASONE/VILANTEROL 1 EACH BLST.W.DEV INH SCH (08:57)
[2018-12-09] MEDS: CLOTRIMAZOLE 1% CREAM 30 GM TUBE TOP SCH ×2 (08:58→20:53)
[2018-12-09] MEDS: Z GUARD REMEDY PASTE 57 GM TUBE TOP SCH ×2 (08:58→20:53)
--- NOTE | 2018-12-09 14:31 | NUR ---
PT NEEDY, DEMANDING, ARGUMENTATIVE, AND ATTENTION SEEKING. MAKING MULTIPLE DEMANDS AND COMPLAINTS BUT NOTHING SEEMS TO ADEQUATELY SATISFY PT. PT DEMANDS STAFF TO PERFORM TASKS SHE CAN DO HERSELF OFTEN TIMES. ALSO NOTED TO BE AMBULATING WITH A STEADY GAIT WITHOUT WALKER.
[2018-12-09] MEDS: DIVALPROEX ER 500 MG TAB.SR.24H PO SCH (16:29)
[2018-12-09] MEDS: INSULIN REGULAR, HUMAN 300 UNIT/3 ML VIAL SQ PRN ×2 (16:42→20:52)
[2018-12-09 16:49] VITALS: BP 118/60
[2018-12-09 20:00] VITALS: BP 149/66
[2018-12-09] MEDS: ACETAMINOPHEN 325 MG TABLET PO PRN (22:06)
--- NOTE | 2018-12-09 22:06 | NUR ---
PATIENT GIVEN RESTORIL 7.5MG PO PRN REQUESTED PER PATIENT. PATIENT ALSO C/O MILD GENERALIZED PAIN, GIVEN TYLENOL 650MG PO PRN. WILL CONTINUE TO MONITOR AND ASSESS.
--- NOTE | 2018-12-09 23:10 | NUR ---
PATIENT ASLEEP IN BED. MEDICATION EFFECTIVE.
[2018-12-10] MEDS: LORAZEPAM 1 MG TABLET PO PRN (00:39)
--- NOTE | 2018-12-10 00:40 | NUR ---
PATIENT AWAKE. UNABLE TO GO BACK TO SLEEP AND "FEELING ANXIOUS." PATIENT GIVEN ATIVAN 1MG PO PRN FOIR ANXIETY. ALL NEEDS ATTENDED. WILL CONTINUE TO MONITOR AND ASSESS.
[2018-12-10] MEDS: BLOOD SUGAR DIAGNOSTIC 1 EACH STRIP VI SCH ×2 (06:51→12:43)
[2018-12-10 07:30] VITALS: BP 135/59
[2018-12-10] MEDS: risperiDONE-M 0.5 MG TAB.RAPDIS PO SCH ×3 (08:42→20:48)
[2018-12-10] MEDS: ASCORBIC ACID 500 MG TABLET PO SCH (08:42)
[2018-12-10] MEDS: GLIMEPIRIDE 2 MG TABLET PO SCH (08:42)
[2018-12-10] MEDS: OXYBUTYNIN CHLORIDE 5 MG TABLET PO SCH ×2 (08:44→16:35)
[2018-12-10] MEDS: METOPROLOL SUCCINATE XL 50 MG TAB.SR.24H PO SCH (08:44)
[2018-12-10] MEDS: DIVALPROEX 250 MG TABLET.DR PO SCH (08:44)
[2018-12-10] MEDS: FLUTICASONE/VILANTEROL 1 EACH BLST.W.DEV INH SCH (08:45)
[2018-12-10] MEDS: CLOTRIMAZOLE 1% CREAM 30 GM TUBE TOP SCH ×2 (08:45→20:49)
[2018-12-10] MEDS: Z GUARD REMEDY PASTE 57 GM TUBE TOP SCH ×2 (08:45→20:48)
[2018-12-10] MEDS: THERAHONEY GEL 1.5 OZ TUBE TOP SCH (08:45)
[2018-12-10] MEDS: BENZTROPINE MESYLATE 0.5 MG TABLET PO SCH ×2 (08:45→20:48)
[2018-12-10 15:08] VITALS: BP 145/48
[2018-12-10] MEDS: DIVALPROEX ER 500 MG TAB.SR.24H PO SCH (16:35)
[2018-12-10 20:04] VITALS: BP 152/70
[2018-12-11] MEDS: LORAZEPAM 1 MG TABLET PO PRN (01:07)
[2018-12-11] MEDS: ACETAMINOPHEN 325 MG TABLET PO PRN (06:19)
[2018-12-11 07:30] VITALS: BP 128/50
[2018-12-11] MEDS: ASCORBIC ACID 500 MG TABLET PO SCH (08:46)
[2018-12-11] MEDS: GLIMEPIRIDE 2 MG TABLET PO SCH (08:46)
[2018-12-11 08:47] VITALS: BP 128/50
[2018-12-11] MEDS: METOPROLOL SUCCINATE XL 50 MG TAB.SR.24H PO SCH (08:47)
[2018-12-11] MEDS: risperiDONE-M 0.5 MG TAB.RAPDIS PO SCH ×2 (08:47→12:27)
[2018-12-11] MEDS: BENZTROPINE MESYLATE 0.5 MG TABLET PO SCH (08:47)
[2018-12-11] MEDS: OXYBUTYNIN CHLORIDE 5 MG TABLET PO SCH (08:48)
[2018-12-11] MEDS: THERAHONEY GEL 1.5 OZ TUBE TOP SCH (08:48)
[2018-12-11] MEDS: DIVALPROEX 250 MG TABLET.DR PO SCH (08:48)
[2018-12-11] MEDS: Z GUARD REMEDY PASTE 57 GM TUBE TOP SCH (08:48)
[2018-12-11] MEDS: CLOTRIMAZOLE 1% CREAM 30 GM TUBE TOP SCH (08:48)
[2018-12-11] MEDS: FLUTICASONE/VILANTEROL 1 EACH BLST.W.DEV INH SCH (08:52)
--- NOTE | 2018-12-11 10:39 | NUR ---
Discharge Note Patient will be discharged to [facility] [[address], [place] [address]; ]. Please arrange Ambulance transportation for patient at 1:00pm. Spoke with Amanda [Admin Coordinator] at the facility who states they are ready to accept the patient today. Patient is alert and oriented x3, denies suicidal or homicidal ideation, and is aware and agreeable with discharge plans. Patients friend, Chelsea Graf [[phone]] is made aware and agreeable with discharge plans. The patient is unable to provide for self-care at this time, however, is willing to accept care at [facility]. Patient will follow-up at the facility with Dr. Kline (Psychiatrist) and Dr. Okeefe (Linoleum Tile Floor Layer). Patient was provided with outpatient mental health resources to [facility] Crisis Line , and the National Suicide Prevention Lifeline .
--- NOTE | 2018-12-11 13:45 | NUR ---
GPS: Nursing Notes: Discharge Notes: Patient is awake and A/Ox4, compliant with her medications, cooperative with nursing care, following staff directions, denies any SI/HI, denies any AH/VH, denies any pain or discomfort per V/S, denies SOB, discharge to [facility] at [address] [place] [address] , report given to facility's staff, RALPH Berry pit and auxiliaries supervisor, transported to facility via ambulance, discharge package given to needle felt making machine operator for the facility. Patient will follow-up at the facility with Dr. Kline (Psychiatrist) and Dr. Okeefe (Golf Course Starter). Patient was provided with outpatient mental health resources to [facility] Crisis Line , and the National Suicide Prevention Lifeline .
== END 2018-12-11 13:45 | DRG 876 ==
LOC: ER 20:04 → GPS 23:10 → UNDODISIN 12-06 16:28
PROVIDERS: ADMIT Psychiatry & Neurology Psychosomatic Medicine; ATTEND Internal Medicine
PROC: 0JBD0ZZ Excision of Right Upper Arm Subcutaneous Tissue and Fascia, Open Approach (ICD-10-PCS; 2018-12-05)
PROC: 0HBRXZZ Excision of Toe Nail, External Approach (ICD-10-PCS; principal; 2018-12-09)
DX: F25.0 Schizoaffective disorder, bipolar type (principal); E11.65 Type 2 diabetes mellitus with hyperglycemia; G90.3 Multi-system degeneration of the autonomic nervous system; Z68.42 Body mass index [BMI] 45.0-49.9, adult; D68.59 Other primary thrombophilia; J98.11 Atelectasis; K80.20 Calculus of gallbladder without cholecystitis without obstruction; N32.81 Overactive bladder; E66.01 Morbid (severe) obesity due to excess calories; G40.909 Epilepsy, unspecified, not intractable, without status epilepticus; R94.5 Abnormal results of liver function studies; G43.909 Migraine, unspecified, not intractable, without status migrainosus; B35.1 Tinea unguium; Z74.09 Other reduced mobility; K58.0 Irritable bowel syndrome with diarrhea; S41.101A Unspecified open wound of right upper arm, initial encounter; X58.XXXA Exposure to other specified factors, initial encounter; Y92.89 Other specified places as the place of occurrence of the external cause; M19.90 Unspecified osteoarthritis, unspecified site; J45.909 Unspecified asthma, uncomplicated; I25.10 Atherosclerotic heart disease of native coronary artery without angina pectoris; K76.0 Fatty (change of) liver, not elsewhere classified; M50.10 Cervical disc disorder with radiculopathy, unspecified cervical region; R62.7 Adult failure to thrive; M79.7 Fibromyalgia; Z79.899 Other long term (current) drug therapy; E78.5 Hyperlipidemia, unspecified; G89.4 Chronic pain syndrome; I45.81 Long QT syndrome; Z87.01 Personal history of pneumonia (recurrent); I10 Essential (primary) hypertension
CPT/HCPCS: 36415; 71045; 71250; 80164; 83735; 84100; 84443; 85025; 87086; 90686; 90732; 93005; A4663; J1815; J3490